=== PATIENT | female | born 1985 | race Caucasian/White ===

== ENCOUNTER 2024-03-03 08:41 | Emergency (ER) | payer OTHER ==
[2024-03-03 08:53] VITALS: BP 118/82; PULSE 83; RESP 18; TEMP 98; BMI 33.3
[2024-03-03 09:32] LABS: EPI CELLS 15 /uL (0-25.1); HYALINE CASTS 9 /uL (0-3.1); PH,URINE 6.5 (5.0-8.0); URINE APPEARANCE CLOUDY; URINE BACTERIA >9,000 /uL (0-1359); URINE BILIRUBIN NEGATIVE (NEGATIVE); URINE COLOR YELLOW; URINE GLUCOSE (UA) NEGATIVE (NEGATIVE); URINE KETONE NEGATIVE (NEGATIVE); URINE LEUK ESTERASE 2+ (NEGATIVE); URINE NITRITE POSITIVE (NEGATIVE); URINE PROTEIN 1+ (NEGATIVE); URINE RBC 176 /uL (0-23.9); URINE UROBILINOGEN 0.2 mg/dL (0.2-1.0); URINE WBC 669 /uL (0-25.8)
[2024-03-03] MEDS ORDERED: CEPHALEXIN MONOHYDRATE 500 MG CAPSULE (UD) ONE (09:42)
[2024-03-03] MEDS: CEPHALEXIN MONOHYDRATE 500 MG CAPSULE (UD) PO ONE (09:43)
== END 2024-03-03 10:01 | disposition home or self-care (01) ==
LOC: JERFT 08:41
DX: N39.0 Urinary tract infection, site not specified (principal); R35.0 Frequency of micturition; R30.0 Dysuria; M79.10 Myalgia, unspecified site; R68.83 Chills (without fever)
CPT/HCPCS: 81003; 87086; 87186; 99283-25